=== PATIENT | male | born 1965 | race Caucasian/White ===

== ENCOUNTER 2017-01-31 23:53 | Observation (INO) ==
[2017-02-01] MEDS ORDERED: ASPIRIN 325 MG TABLET PO STA (00:36)
[2017-02-01] MEDS ORDERED: SODIUM CHLORIDE 0.9% 500 ML IV STA (00:36)
[2017-02-01] MEDS ORDERED: ONDANSETRON 4 MG/2 ML VIAL IV STA (00:36)
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
[2017-02-01 01:30] LABS: Apearance,Urine CLEAR (Clear); Bilirubin,Urine Negative (Negative); Blood, Urine Negative (Negative); Glucose,Urine (UA) Negative (Negative); Hyaline Casts,Urine 1 /LPF (0-3); Ketones,Urine Negative (Negative); Mucus,Urine Few /LPF (Occasional); Nitrite,Urine Negative (Negative); Protein,Urine Negative; RBC,Urine <1 /HPF (0-4); Urine Color Yellow (Yellow); Urine Specific Gravity 1.013 (1.001-1.035); Urine Urobilinogen < 2.0 EU/DL (0.2-1.0); WBC,Urine <1 /HPF (0-6)
[2017-02-01] MEDS ORDERED: ASPIRIN 325 MG TABLET ONE (01:31)
[2017-02-01] MEDS ORDERED: ONDANSETRON 4 MG/2 ML VIAL ONE (01:31)
[2017-02-01 01:35] LABS: Barbiturates Screen,Urine Negative (Negative); Basophils % 0.4 % (0.0-0.8); Benzodiazepines Screen,Urine Negative (Negative); Cannabinoid Screen,Urine Negative (Negative); Eosinophils # 0.1 10*3/uL (0.0-0.87); Eosinophils % 1.4 % (0.00-10.9); Hematocrit 42.6 VOL% (42.0-52.0); Immature Granulocytes % 0.4 %; Immature Granulocytes Absolute 0.02 #; Lymphocytes # 1.3 10*3/uL (1.4-4.0); Lymphocytes % 26.3 % (21.2-54.2); Mean Corpuscular HGB Conc 35.2 GM/DL (32-36); Mean Corpuscular Hemoglobin 30 PG (27-34); Mean Corpuscular Volume 84.9 FL (87-102); Mean Platelet Volume 9.8 FL (9.6-12.0); Monocytes # 0.5 10*3/uL (0.11-0.8); Monocytes % 9.8 % (1.7-12.7); Neutrophils # 3.1 10*3/uL (1.4-7.4); Neutrophils % 61.7 % (38.7-73.9); Opiate Screen,Urine Negative (Negative); Phencyclidine Screen,Urine Negative (Negative); Platelet Count 254 T/CUMM (130-400); Red Blood Count 5.02 MC/CUMM (3.8-5.5); Red Cell Distribution Width 13.6 % (9.3-17.3)
[2017-02-01 01:41] LABS: PT Patient Result 10.4 SECS; Partial Thromboplastin Time 27.7 SECS (0-40)
[2017-02-01] MEDS ORDERED: ENOXAPARIN 100 MG/ML SYRINGE SUBCUT STA (01:46)
[2017-02-01 01:49] LABS: Alanine Aminotransferase 35 U/L (16-61); Alkaline Phosphatase 81 U/L (45-117); Aspartate Amino Transferase 19 U/L (0-37); Blood Urea Nitrogen 14 MG/DL (7-18); Calcium 8.8 MG/DL (8.5-10.1); Glucose 102 MG/DL (74-106); Osmolality,Calculated 279.4 MOS/KG (273-304); Potassium 3.8 MMOL/L (3.5-5.1); Sodium 140 MMOL/L (136-145); Total Protein 7.5 G/DL (6.4-8.3)
[2017-02-01] MEDS ORDERED: ENOXAPARIN 80 MG/0.8 ML SYRINGE SUBCUT ONE (01:57)
[2017-02-01] MEDS ORDERED: MORPHINE 2 MG/1 ML SYRINGE IV PRN (03:27)
[2017-02-01] MEDS ORDERED: ACETAMINOPHEN 325 MG TABLET PO PRN (03:27)
[2017-02-01] MEDS ORDERED: ONDANSETRON 4 MG/2 ML VIAL IV PRN (03:27)
--- NOTE | 2017-02-01 03:32 | Hospitalist History & Physical ---
Assessment and Plan (1) Headache Status: Acute Assessment and plan: - migraine with neurological changes?? - PRN imitrex - Pain control - will monitor Current Visit: Yes (2) Right sided weakness Status: Acute Assessment and plan: - telemetry; repeat EKG (possible atrial flutter on telemetry in ER) - serial cardiac enzymes - Echocardiogram - MRI/MRA - neurochecks - Lipid panel - Aspirin and Statin - Will monitor Current Visit: Yes History of Present Illness Chief complaint: Weakness and headache History of present illness: Mr. Low is a 51 year old male with a history of SVT that presented to the ER with right hand weakness that started just prior to arrival. Patient reports that he was driving ([place] to [place]) and he all of a sudden felt dizzy, lightheaded, and right hand weakness. Patient also reports a headache that starts in his frontal region and radiates to the back of his head. Patient initially describes a headache as moderate to severe and throbbing but is now mild to moderate and constant. Patient complains of photophobia, shortness of breath, and palpitations. Patient has not had symptoms like this in the past. Of note patient had ablation for SVT about 1.5 years ago. ER workup was unremarkable. Patient was admitted to hospitalist service for further evaluation of symptoms. Home Medications Medication Instructions Recorded Confirmed Type No Known Home Medications [No 02/01/17 02/01/17 History Known Home Medications] Allergies Allergy/AdvReac Type Severity Reaction Status Date / Time No Known Allergies Allergy Unverified 02/01/17 00:12 Medical,Surgical,& Family Hx - Surgical History Cardiac Surgeries: Sugical HX of: Cardiac Surgery (Ablation 2016) - Family History Family History: Reports;: Family Heart Disease (FATHER OF AN [place]) - Social History Smoking Status: Never smoker Frequency of Alcohol Use: None Review of systems: 12 point review of systems is negative unless stated in the HPI Exam - Constitutional Vitals: Period Temp Pulse Resp BP Sys/Shook Pulse Ox Last 24 Hr 98.5 F-98.5 F 71-71 20-20 163-163/106-106 97-98 General appearance: normal weight - Head Head exam: Present: normal inspection - Eye Eye exam: Present: EOMI Pupils: Present: CARRI - Neck Neck exam: Present: normal inspection - Respiratory Respiratory exam: Present: clear to auscultation bilaterally - Cardiovascular Cardiovascular exam: Present: regular rate and rhythm. Absent: systolic murmur - GI/Abdominal GI/Abdominal exam: Present: normal bowel sounds. Absent: distended, tenderness - Extremities Exam Extremities exam: Absent: edema - Neurological Exam Neurological exam: Present: alert, oriented X3, motor sensory deficit (right arm 4/5 and right leg 3+/5), other (slowed finger to nose test on the right) - Psychiatric Psychiatric exam: Present: normal affect, normal mood - Skin Skin exam: Present: normal color Results - Labs CBC & BMP: 02/01/17 00:55 02/01/17 00:55
[2017-02-01 05:12] LABS: Basophils % 0.5 % (0.0-0.8); Eosinophils # 0.1 10*3/uL (0.0-0.87); Eosinophils % 1.5 % (0.00-10.9); Hematocrit 39.3 VOL% (42.0-52.0); Hemoglobin 13.7 GM/DL (14.0-18.0); Immature Granulocytes % 0.3 %; Immature Granulocytes Absolute 0.02 #; Lymphocytes # 2.2 10*3/uL (1.4-4.0); Lymphocytes % 33.7 % (21.2-54.2); Mean Corpuscular HGB Conc 34.9 GM/DL (32-36); Mean Corpuscular Hemoglobin 30 PG (27-34); Mean Corpuscular Volume 85.4 FL (87-102); Mean Platelet Volume 10.3 FL (9.6-12.0); Monocytes # 0.6 10*3/uL (0.11-0.8); Neutrophils # 3.6 10*3/uL (1.4-7.4); Platelet Count 267 T/CUMM (130-400); Red Cell Distribution Width 13.6 % (9.3-17.3); White Blood Count 6.6 T/CUMM (4-12)
[2017-02-01 06:00] LABS: Calcium 8.3 MG/DL (8.5-10.1); Osmolality,Calculated 278.4 MOS/KG (273-304); Potassium 4.4 MMOL/L (3.5-5.1); Risk Ratio 4.94
--- NOTE | 2017-02-01 06:47 | CT Report ---
CT of the head without contrast. Indication: Right-sided hemiplegia and hemiparesthesias. No prior study. There is a preliminary report from [facility]. The ventricles are normal in size and configuration. There is no mass effect, midline shift, or area of hemorrhage. No ischemic lesions are seen. The calvarium is intact. There is nasal septal deviation. The included paranasal sinuses and the mastoid air cells are clear. Impression: No acute abnormality is seen. The CT exam was performed using one or more of the following dose reduction techniques: Automated exposure control, adjustment of the mA and/or kV according to patient size, or use of iterative reconstruction technique. PROCEDURE INTERPRETED AT [facility] DEPARTMENT OF RADIOLOGY Final Report Signed by: Dr. Sherrie Hernández
--- NOTE | 2017-02-01 07:16 | EKG Report ---
Stationary ECG Study [facility] ER Test Date: 02/01/2017 12:13:36 AM Pat Name: NAI BOWENS Department: Room: 294 Gender: M Psychosocial Rehabilitation Counselor: Tawny : 1965 Requested by: Kal Snyder Order Number: [id number] Jm MD: MARIAMA SAUCEDO Intervals [place] Rate: 69 P: 36 NC: 171 QRS: 38 QRSD: 90 T: 42 QT: 378 QTc: 396 Interpretive Statements SINUS RHYTHM Electronically Signed On 02-02-17 07:04:18 CDT by MARIAMA SAUCEDO [email or web address]
--- NOTE | 2017-02-01 07:21 | EKG Report ---
Stationary ECG Study [facility] Test Date: 02/01/2017 3:56:29 AM Pat Name: NAI BOWENS Department: Room: 294 Gender: M Wireless Technician: DEMETRICE DOMÍNGUEZ : 1965 Requested by: Josesito Crow Order Number: [id number] Reading MD: MARIAMA SAUCEDO Intervals [place] Rate: 56 P: 39 VA: 173 QRS: 32 QRSD: 85 T: 30 QT: 399 QTc: 392 Interpretive Statements SINUS RHYTHM Electronically Signed On 02-02-17 07:22:52 CDT by MARIAMA SAUCEDO [email or web address]
--- NOTE | 2017-02-01 07:36 | XRay Report ---
Single view the chest. Indication: Cardiomegaly. No previous study. The heart and mediastinal contours are unremarkable. The pulmonary vasculature is normal. There is no consolidation, pneumothorax, or pleural effusion. The osseous structures are unremarkable. Impression: No abnormality is seen. PROCEDURE INTERPRETED AT [facility] DEPARTMENT OF RADIOLOGY Final Report Signed by: Dr. Sherrie Hernández
[2017-02-01] MEDS: ASPIRIN 325 MG TABLET PO SCH (11:43)
[2017-02-01] MEDS ORDERED: LORazepam 1 MG TABLET PO ONE (15:19)
--- NOTE | 2017-02-01 16:47 | Magnetic Resonance Report ---
MRI brain without contrast Indication: Right-sided weakness Comparison: CT 01 February 2017 Technique: Axial sagittal and coronal imaging of the brain is performed without contrast. T1, T2, FLAIR and diffusion weighted sequences are performed. Findings: No evidence of restricted diffusion seen. No evidence of intracranial hemorrhage, mass, mass effect or midline shift is seen. The brain parenchyma has normal signal and differentiation. The ventricles and cisterns are appropriate in caliber. Posterior fossa, mid brain and pituitary gland appear within normal limits. No evidence of cranial or skull base abnormality seen. Impression: No evidence of abnormality demonstrated. PROCEDURE INTERPRETED AT [facility] DEPARTMENT OF RADIOLOGY Final Report Signed by: Dr. Preston Pisano
--- NOTE | 2017-02-01 16:49 | Magnetic Resonance Report ---
MR [place] Indication: Right-sided weakness Technique: 3-D [id number] imaging through the [place] was performed without contrast. Computer reformatting of the cerebral arteries is generated. Findings: The cerebral arteries are normal in caliber. No evidence of stenosis or vessel cutoff is seen. No filling defects are identified. No evidence of vascular malformation or aneurysm is seen. Impression: No evidence of abnormality demonstrated. PROCEDURE INTERPRETED AT [facility] DEPARTMENT OF RADIOLOGY Final Report Signed by: Dr. Preston Pisano
--- NOTE | 2017-02-01 16:56 | ECHO Report ---
Avila Low 02/01/2017 Exam Date: 12:58 Referring Physician: Susan Urias Technologist: BRIONNA Age: 51 Ht (in): 69 Wt (lb): 170 [facility] Gender: Echo [id number]: neurological symtoms, rt. sided weaknessIndications: BP: 120 / 72 HR: 65 SinusRhythm: goodTechnical Quality: IMPRESSIONS Left ventricular ejection fraction is estimated at 60%. Grade I diastolic dysfunction or impaired relaxation. Tricuspid regurgitation velocities suggest a RVSP of 26.0 mmHg + RAP. Mild pulmonary valve regurgitation. MEASUREMENTS (Male / Female) Normal Values 2D ECHO LV Diastolic Diameter PLAX 4.2 cm 4.2 - 5.9 / 3.9 - 5.3 cm LV Systolic Diameter PLAX 2.5 cm LV Fractional Shortening PLAX 39.1 % IVS Diastolic Thickness 0.9 cm 0.6 - 1.0 / 0.6 - 0.9 cm LVPW Diastolic Thickness 1.1 cm 0.6 - 1.0 / 0.6 - 0.9 cm Aortic Root Diameter 2.4 cm LA Systolic Diameter LX 3.3 cm 3.0 - 4.0 / 2.7 - 3.8 cm DOPPLER TR Peak Velocity 255.0 cm/s TR Peak Gradient 26.0 mmHg FINDINGS Left Ventricle Normal left ventricular cavity size. Left ventricular ejection fraction is estimated at 60%. Grade I diastolic dysfunction or impaired relaxation. Right Ventricle Normal right ventricular size. Right Atrium Normal right atrial size. Left Atrium Normal left atrial size. Mitral Valve Morphologically normal mitral valve. Aortic Valve The aortic valve is trileaflet and has normal motion. Tricuspid Valve Morphologically normal tricuspid valve. Trace tricuspid valve regurgitation. Tricuspid regurgitation velocities suggest a RVSP of 26.0 mmHg + RAP. Pulmonic Valve Morphologically normal pulmonic valve. Mild pulmonary valve regurgitation. Pericardium No pericardial effusion. Aorta Normal size aortic root and proximal ascending aorta. Deena Mcknight (Electronically Signed) 01 February 2017 Final Date: 16:55
--- NOTE | 2017-02-01 17:37 | Magnetic Resonance Report ---
MR angio neck wo con Indication: Right-sided weakness. MR angiogram carotid arteries Technique: 3-D [id number] MR angiographic images of the carotid arteries were obtained. 3-D vascular MIPS reconstructions provided for interpretation. Comparison: None. Findings: Severity of stenosis based on NASCET criteria. Right ICA diameter 4.4 mm and left ICA diameter 4.3 mm. There is no measurable stenosis of either ICA origin. No significant vascular tortuosity. External carotid branches are widely patent. Common carotid arteries are widely patent. Both vertebral arteries are widely patent and symmetric in size. Impression: No measurable stenosis of either ICA origin. PROCEDURE INTERPRETED AT [facility] DEPARTMENT OF RADIOLOGY Final Report Signed by: Sourav Amezquita M.D.
[2017-02-01] MEDS ORDERED: ROSUVASTATIN 20 MG TABLET PO SCH (21:00)
[2017-02-02] MEDS: ASPIRIN 325 MG TABLET PO SCH (08:48)
[2017-02-02] MEDS ORDERED: ENOXAPARIN 40 MG/0.4 ML SYRINGE SUBCUT SCH (09:00)
--- NOTE | 2017-02-02 09:31 | Discharge Summary ---
Hospital Course - Hospital Course Hospital Course: 51-year-old white male with history of SVT and intermittent migraines admitted to the emergency room on 02/01/2017 with migraine and right-sided weakness. Patient was passing through on his way home to [place] when his head began to hurt bad enough that he had stopped. Patient underwent full stroke workup which included head CT, brain MRI, echo, head MRA, and neck MRA and these were all negative. Patient's right-sided weakness has completely resolved along with his headache. Patient was also evaluated by physical therapy that did not find any impairments. Patient will be discharged home with a few Imitrex as needed for further migraines until he can reach his home in [place]. I recommended he follow-up with his primary care physician in 1-2 weeks for referral to neurologist for migraine workup. Patient verbalized understanding. Complete discharge instructions were given to the patient and in the room. Care coordination, chart review, and completed discharge paperwork took approximately 31 minutes. - Time spent with patient Time with patient DS: Greater than 30 minutes Diagnosis - Discharge Diagnosis (1) Right sided weakness Status: Resolved (2) Headache Status: Resolved Discharge Plan - Discharge Data Disposition: Disch To Home/Self Care Condition at Discharge: Stable Discharge Diet: advance to your usual diet Activity: resume usual activities as tolerated Driving: no restrictions Contact your physician if you experience:: pain uncontrolled by pain medications - Discharge Medications New SUMAtriptan TAB [Imitrex Tab] 50 mg PO Q2H PRN #14 tablet PRN Reason: Migraine Headache - Follow Up or Referral Follow Up: your, PCP [Other] - 2 Weeks - Forms/Instructions Exam - Constitutional Vitals: Period Temp Pulse Resp BP Sys/Shook Pulse Ox Last 24 Hr 96.6 F-99 F 60-80 17-20 122-149/71-92 95-98 Exam: 51-year-old white male, no acute distress, alert and oriented Chest clear CV regular rate and rhythm Abdomen soft nontender Extremities no edema, MMT 5/5 bilateral upper and lower extremities Discharge Results Labs on day of discharge: Labs from last 24 hours 02/01/17 09:14 Troponin I < 0.015 DS: Provider Date of admission: 02/01/17 02:22 Primary care physician: . No PCP Attending physician on admission: Josesito Crow MD Consults: 02/01/17 03:17 Consult to Case Mgmt/Social Srvs [CONS] Routine Reason for Case Mgmt/Social Srvs: Discharge Planning Consult to Occupational Therapy [CONS] Routine Reason for Occupational Therapy: Evaluate and Treat Consult Comment: Stroke Consult to Physical Therapy [CONS] Routine Reason for Physical Therapy: Evaluate and Treat Consult Comment: stroke 02/02/17 09:26 Consult to Physician [CONS] Routine Comment: Consulting Provider: Consult to Specialist Group: Neurology When should Consulting Provider be notified: Now Discharging clinician: ANITHA Valladares Expected date of discharge: 02/02/17
[2017-02-04 05:02] VITALS: BP 149/92
== END 2017-02-02 11:34 | disposition home or self-care (01) ==
LOC: N.EDINP 23:53 → N.ED 23:53 → SUATTDRO 02-01 02:22 → N.TELEN 02-01 02:47
PROVIDERS: ADMIT Family Medicine; ATTEND Internal Medicine